=== PATIENT | male | born 1995 | race Asian ===

== ENCOUNTER 2019-02-10 19:52 | Inpatient (IN) ==
[2019-02-10 20:27] LABS: Basophils # (auto) 0.02 K/uL (0-0.2); Basophils % (auto) 0.3 %; Eosinophils % (auto) 1.6 %; Hematocrit (blood only) 47.5 % (42-52); Hemoglobin 16.7 g/dL (14.0-18.0); Immature Granulocytes # (auto) 0.01 K/uL (0.00-0.02); Immature Granulocytes % (auto) 0.2 %; Lymphocytes # (auto) 2.29 K/uL (1.2-3.4); Lymphocytes % (auto) 36.7 %; Mean Corpuscular Hgb Conc 35.2 g/dL (32-36); Mean Platelet Volume 9.5 fL (7.4-10.4); Monocytes # (auto) 0.52 K/uL (0.11-0.59); Monocytes % (auto) 8.3 %; Neutrophils % (auto) 52.9 %; Platelet Count 324 K/uL (130-400); RDW Standard Deviation 40.3 fL (36.4-46.3); Red Blood Count 5.22 M/uL (4.7-6.1); White Blood Count 6.24 K/uL (4.8-10.8)
[2019-02-10 20:29] LABS: Appearance Urine Clear (Clear); Bilirubin Urine Negative (Negative); Blood Urine Negative (Negative); Color Urine Yellow; Glucose Urine UA Negative (Negative); Ketones Urine Negative (Negative); Leukocyte Esterase Urine Negative (Negative); Nitrite Urine Negative (Negative); Protein Urine Negative (Negative); Specific Gravity Urine 1.026 (1.000-1.030); Urobilinogen Urine Negative (Negative); pH Urine 6.5 (4.5-7.5)
[2019-02-10] MEDS ORDERED: LACTATED RINGER'S 1,000 ML IV SCH (20:30)
[2019-02-10 20:53] LABS: Albumin Globulin Ratio 1.1 (0.9-2); Albumin Level 4.4 gm/dl (3.4-5.0); BUN Creatinine Ratio 12.9 (10-20); Bilirubin,Total 0.5 mg/dl (0.2-1); Creatinine Clr Calc Pharmacy 78.3 ml/min; Est GFR (African American) 117.6; Est GFR (Non-African American) 101.4; Globulin 4.2 gm/dl (2.5-4.0); Total Protein 8.6 gm/dl (6.4-8.2)
[2019-02-10] MEDS ORDERED: IOVERSOL 100ml IV PRN (22:23)
--- NOTE | 2019-02-10 22:29 | CT Scan Report ---
CT abd pelvis oral and IV con CT DOSE: 295.57 mGy.cm HISTORY: pancreatitis, pancreas protocol TECHNIQUE: Multiaxial CT images of the abdomen and pelvis were performed following the use of intrave nous and oral contrast. A dose lowering technique was utilized adhering to the principles of ALARA. COMPARISON STUDY: None. FINDINGS: The lung bases are clear. The liver, spleen, gallbladder, pancreas, kidneys, and adrenal gl ands are within normal limits. No bowel wall thickening or obstruction. The pelvic organs are unremar kable. No suspicious lytic or blastic osseous lesions. The appendix is normal. The suggestion of slight wall edema of components of the transverse and desce nding colon. No evidence for abscess collection or obstruction. IMPRESSION: 1. Normal appendix. 2. Possible mild colitis of the proximal to mid colon regions. 3. No evidence for abscess collection or obstruction. 4. Normal pancreas. The above report was generated using voice recognition software. It may contain grammatical, syntax or spelling errors. Electronically signed by: Alfred Recio M.D. 02/10/2019 10:28 PM
[2019-02-10] MEDS ORDERED: MoRPHine SULFATE 2 MG/ML CARP IV PRN (23:58)
[2019-02-10] MEDS ORDERED: ONDANSETRON INJ 2 MG/ML 2 ML VIAL IV PRN (23:58)
[2019-02-11] MEDS: LACTATED RINGER'S 1,000 ML IV SCH ×3 (00:35→11:17)
--- NOTE | 2019-02-11 02:22 | History & Physical Report ---
Date of Service February 10, 2019 Assessment & Plan (1) Acute pancreatitis: Patient with epigastric abdominal pain, elevated cplycv=[id number]. CT Abdomen with normal appearing pancreas. Other labs WNL. Mild acute pancreatitis most likely secondary to EtOH use -Admit to medical floor -NPO -Aggressive IVF with LR at 200mL/hr -Check Lipids in AM -Nausea control with Zofran PRN -Pain control with Morphine PRN Present on Admission?: Yes History of Present Illness Chief Complaint: Pancreatitis Primary Care Provider: [facility] Patient is a 23yo male with no significant past medical history presenting with pancreatitis. He reports appx 1 week of epigastric abdominal pain. Denies nausea, vomiting, fevers, chills, diarrhea or constipation. He drinks fairly regularly and reports drinking before his discomfort started. He also reports getting hit in the abdomen appx one week ago while playing basketball. Patient was seen at [facility] earlier today and was found to have an elevated Lipase > 3000. He was therefore sent to the ER. No additional complaints at this time ER Course: LR Allergies Allergy/AdvReac Type Severity Reaction Status Date / Time No Known Allergies Allergy Verified 02/10/19 20:40 Home Medications Home Medications Medication Instructions Recorded Confirmed Type No Known Home Medications 02/10/19 02/10/19 History Past Med/Surg History Medical History External hemorrhoids Family History Other Family history non-contributory Social History Preferred Language: German Communication Ability: Effective Health Information Manager Required: No Beliefs That Will Affect Care: None Current Living Situation: Other Current Living Situation Comment: Lives with roommates Other Information That Helps Us Care for You: No Feels Safe at Home: Yes Smoking Status: Current every day smoker Hx Alcohol Use: Yes Hx Substance Use: No Review of Systems All systems reviewed & are unremarkable except as noted in HPI & below Physical Exam Vital Signs (Past 24 Hours): Last Vital Signs Temp 36.3 C L 02/10/19 23:58 Pulse 57 L 02/10/19 23:58 Resp 18 02/10/19 23:58 BP 111/79 02/10/19 23:58 Pulse Ox 96 02/10/19 23:58 Physical Exam: General: patient resting comfortably, NAD, non-toxic in appearance, AA&O x 4 Skin: warm, dry, intact, no rashes or lesions HEENT: NC/AT, PERRL, EOMI, anicteric sclera, conjunctiva without injection, external ear normal to inspection and nontender, nares patent, moist mucus me mbranes, dentition intact, no oropharyngeal lesions, neck supple, trachea midline, no LAD, no thyromegaly, no JVD Heart: +S1/S2, regular, no m/r/g Lungs: equal air entry bilaterally, no rales/rhonchi/wheezes Abd: +BS, soft, ND, no masses/organomegaly/ascites, +Epigastric tenderness with palpation, no rebound/guarding or peritoneal signs Ext: warm, 2+ pulses in UE/LE bilaterally, no clubbing/cyanosis or edema Neuro: nonfocal, patient AA&O x 4, speech intact, no facial droop, moving all extremities on command with equal strength 5/5 Results & Data Laboratory Results Lab Results 02/10/19 02/10/19 02/10/19 Range/Units 20:04 20:04 20:04 WBC 6.24 (4.8-10.8) K/uL RBC 5.22 (4.7-6.1) M/uL Hgb 16.7 (14.0-18.0) g/dL Hct 47.5 (42-52) % MCV 91.0 (80-100) fL MCH 32.0 (25-34) pg MCHC 35.2 (32-36) g/dL RDW Std Deviation 40.3 (36.4-46.3) fL RDW Coeff of Ayan 12.0 (11.5-14.5) % Plt Count 324 (130-400) K/uL MPV 9.5 (7.4-10.4) fL Immature Gran % (Auto) 0.2 % Neut % (Auto) 52.9 % Lymph % (Auto) 36.7 % [place] % (Auto) 8.3 % Eos % (Auto) 1.6 % Baso % (Auto) 0.3 % Immature Gran # (Auto) 0.01 (0.00-0.02) K/uL Neut # (Auto) 3.30 (1.4-6.5) K/uL Lymph # (Auto) 2.29 (1.2-3.4) K/uL [place] # (Auto) 0.52 (0.11-0.59) K/uL Eos # (Auto) 0.10 (0-0.5) K/uL Baso # (Auto) 0.02 (0-0.2) K/uL Sodium 139 (136-145) mmol/L Potassium (3.5-5.1) mmol/L Chloride 106 (98-107) mmol/L Carbon Dioxide 29 (21-32) mmol/L Anion Gap 4.0 (3-11) BUN 13 (7-18) mg/dl Creatinine 1.04 (0.6-1.4) mg/dl Est Cr Clr Drug Dosing 78.3 ml/min Est GFR ( Amer) 117.6 Est GFR (Non-Af Amer) 101.4 BUN/Creatinine Ratio 12.9 (10-20) Glucose 75 (70-99) mg/dl Calcium 10.0 (8.5-10.1) mg/dl Total Bilirubin 0.5 (0.2-1) mg/dl AST (15-37) U/L ALT 25 (12-78) U/L Alkaline Phosphatase 96 (45-117) U/L Total Protein 8.6 H (6.4-8.2) gm/dl Albumin 4.4 (3.4-5.0) gm/dl Globulin 4.2 H (2.5-4.0) gm/dl Albumin/Globulin Ratio 1.1 (0.9-2) Lipase 4055 H (73-393) U/L Urine Color Urine Appearance (Clear) Urine pH (4.5-7.5) POC Urine pH 6 (4.5-7.5) Ur Specific [place] (1.000-1.030) Urine Protein (Negative) POC Urine Protein Trace H (Negative) Urine Glucose (UA) (Negative) POC Ur Glucose (UA) Normal (Normal) Urine Ketones (Negative) POC Urine Ketones Negative (Negative) Urine Blood (Negative) POC Urine Blood Negative (Negative) Urine Nitrite (Negative) POC Urine Nitrite Negative (Negative) Urine Bilirubin (Negative) POC Urine Bilirubin Negative (Negative) Urine Urobilinogen (Negative) POC Urine Urobilinogen Normal (Normal) Ur Leukocyte Esterase (Negative) POC U Leukocyte Esteras Negative (Negative) 02/10/19 02/10/19 Range/Units 20:04 21:19 WBC (4.8-10.8) K/uL RBC (4.7-6.1) M/uL Hgb (14.0-18.0) g/dL Hct (42-52) % MCV (80-100) fL MCH (25-34) pg MCHC (32-36) g/dL RDW Std Deviation (36.4-46.3) fL RDW Coeff of Ayan (11.5-14.5) % Plt Count (130-400) K/uL MPV (7.4-10.4) fL Immature Gran % (Auto) % Neut % (Auto) % Lymph % (Auto) % [place] % (Auto) % Eos % (Auto) % Baso % (Auto) % Immature Gran # (Auto) (0.00-0.02) K/uL Neut # (Auto) (1.4-6.5) K/uL Lymph # (Auto) (1.2-3.4) K/uL [place] # (Auto) (0.11-0.59) K/uL Eos # (Auto) (0-0.5) K/uL Baso # (Auto) (0-0.2) K/uL Sodium (136-145) mmol/L Potassium 4.0 (3.5-5.1) mmol/L Chloride (98-107) mmol/L Carbon Dioxide (21-32) mmol/L Anion Gap (3-11) BUN (7-18) mg/dl Creatinine (0.6-1.4) mg/dl Est Cr Clr Drug Dosing ml/min Est GFR ( Amer) Est GFR (Non-Af Amer) BUN/Creatinine Ratio (10-20) Glucose (70-99) mg/dl Calcium (8.5-10.1) mg/dl Total Bilirubin (0.2-1) mg/dl AST 19 (15-37) U/L ALT (12-78) U/L Alkaline Phosphatase (45-117) U/L Total Protein (6.4-8.2) gm/dl Albumin (3.4-5.0) gm/dl Globulin (2.5-4.0) gm/dl Albumin/Globulin Ratio (0.9-2) Lipase (73-393) U/L Urine Color Yellow Urine Appearance Clear (Clear) Urine pH 6.5 (4.5-7.5) POC Urine pH (4.5-7.5) Ur Specific [place] 1.026 (1.000-1.030) Urine Protein Negative (Negative) POC Urine Protein (Negative) Urine Glucose (UA) Negative (Negative) POC Ur Glucose (UA) (Normal) Urine Ketones Negative (Negative) POC Urine Ketones (Negative) Urine Blood Negative (Negative) POC Urine Blood (Negative) Urine Nitrite Negative (Negative) POC Urine Nitrite (Negative) Urine Bilirubin Negative (Negative) POC Urine Bilirubin (Negative) Urine Urobilinogen Negative (Negative) POC Urine Urobilinogen (Normal) Ur Leukocyte Esterase Negative (Negative) POC U Leukocyte Esteras (Negative) Diagnostic Findings CT abd pelvis oral and IV con CT DOSE: 295.57 mGy.cm HISTORY: pancreatitis, pancreas protocol TECHNIQUE: Multiaxial CT images of the abdomen and pelvis were performed following the use of intravenous and oral contrast. A dose lowering technique was utilized adhering to the principles of ALARA. COMPARISON STUDY: None. FINDINGS: The lung bases are clear. The liver, spleen, gallbladder, pancreas, kidneys, and adrenal glands are within normal limits. No bowel wall thickening or obstruction. The pelvic organs are unremarkable. No suspicious lytic or blastic osseous lesions. The appendix is normal. The suggestion of slight wall edema of components of the transverse and descending colon. No evidence for abscess collection or obstruction. IMPRESSION: 1. Normal appendix. 2. Possible mild colitis of the proximal to mid colon regions. 3. No evidence for abscess collection or obstruction. 4. Normal pancreas. The above report was generated using voice recognition software. It may contain grammatical, syntax or spelling errors. Electronically signed by: Alfred Recio M.D. 02/10/2019 10:28 PM Dictated: 02/10/192224 Transcribed: 02/10/192224 Code Status & VTE Plan Code Status FULL Critical Care Time Critical Care Time: No (1) Acute pancreatitis Acute pancreatitis complication: unspecified Pancreatitis type: unspecified pancreatitis type Qualified Code(s): K85.90 - Acute pancreatitis without necrosis or infection, unspecified
--- NOTE | 2019-02-11 03:03 | Emergency Department Note ---
Entered by Zara Obregon acting as a scribe for Elvis Brown MD ED Provider Note CHIEF COMPLAINT: Abdominal pain HISTORY OF PRESENT ILLNESS: The patient is a 23 year old male presenting to the Emergency Department complaining of persistent abdominal pain starting 1 week ago. The patient reports that he has been experiencing abdominal pain. He describes this pain as a tight feeling. He states that his abdominal pain is non-radiating. He notes that he has lost his appetite but did eat ice cream prior to arrival. He explains that he went to [facility] prior to arrival and had blood work done. He states that he received an email from Dr. Ralph � [facility] physician who told the patient that his lipase was elevated at 3615 and he needed to go to the Emergency Department. The patient reports that he drank a large amount of alcohol 1 week ago at his friend�s birthday constitution party. He states that he experienced this same abdominal pain 8 days ago after playing basketball. He notes that he regularly smokes tobacco. He explains that he has intermittent problems with his hemorrhoids and that he had a knee surgery. He adds that he doesn�t regularly take medications. Pt denies LOC, headache, fevers, chills, diaphoresis, visual changes, neck pain, chest pain, breathing difficulties, nausea, vomiting, back pain, melena, hematochezia, urinary symptoms, numbness, weakness, lymphadenopathy, rash, or other complaints. REVIEW OF SYSTEMS: See HPI for pertinent positives and negatives. A total of ten systems were reviewed and were otherwise negative. PMHx/PSHx: Hemorrhoids. History of knee surgery. SOCIAL HISTORY: Patient lives at home. Current everyday smoker. PHYSICAL EXAM: GENERAL: Awake, alert, well-appearing, in no distress HENT: Normocephalic, atraumatic. Oropharynx unremarkable. EYES: Normal conjunctiva. Sclera non-icteric. NECK: Inspection normal. Non-tender. Supple. No nuchal rigidity. FROM. No masses. RESPIRATORY: Clear to auscultation. No wheezes. No rales. Normal respiratory ef fort. CARDIAC: Normal rate. Normal rhythm. No murmurs. No rubs. Extremities warm and well perfused. Pulses equal. No JVD. GI: Soft, non-distended. Mild epigastric pain. No rebound or guarding. No m asses. RECTAL: Deferred. MUSCULOSKELETAL: Atraumatic. Chest examination reveals no tenderness. The back is symmetrical on inspection without obvious abnormality. There is no CVA tenderness to palpation. No joint edema. LOWER EXTREMITIES: Calves are equal size bilaterally and non-tender. No edema. No discoloration. NEURO: Normal sensorium. No sensory or motor deficits noted. SKIN: No rash or jaundice noted. EMERGENCY DEPARTMENT COURSE: 2007: The patient was evaluated in room B5, and a complete history and physical examination were performed. 2218: I updated the patient at this time. 2233: I reviewed the patient's case with Dr. Cristhian FOFANA Hospitalist. She will evaluate the patient for further management. MEDICAL DECISION MAKING: Triage Nursing notes reviewed and agree them. The patient's history was concerning for abdominal pain and an elevated outpatient lipase. Differential diagnosis: Etiologies such as pancreatitis, appendicitis, diverticulitis, PUD, biliary pathology, UTI,, obstruction, mesenteric ischemia, aortic pathology, infections, inflammatory bowel disease, renal colic, as well as others were entertained. Physical examination findings: As above. ER treatment provided: Patient declined analgesia Lactated Ringer hydration. On reassessment the patient felt better. Diagnostics interpreted by me: The labs revealed an unremarkable CBC and chemistry panel. The patient has a market elevation of his lipase at 4055. Urinalysis unremarkable. Imaging studies: CT scan of the abdomen pelvis was performed. This is negative for any acute pathology regarding the pancreas. Radiology questioned some mild colitis however the patient has no symptoms to suggest that. Consultation: A consultation was placed with the [facility] hospitalist. The case was discussed and diagnostics were reviewed. The patient was evaluated in the ER for further treatment. IMPRESSION: Acute pancreatitis PLAN: Being Evaluated by Hospitalist The rockyibe's documentation has been prepared under my direction and personally reviewed by me in its entirety. I confirm that the note above accurately reflects all work, treatment, procedures, and medical decision making performed by me. Impression & Plan Acute pancreatitis Past Med/Surg History Medical History External hemorrhoids Social History Preferred Language: Polish Communication Ability: Effective Computer Systems Security Administrator Required: No Beliefs That Will Affect Care: None Current Living Situation: Other Current Living Situation Comment: Lives with roommates Other Information That Helps Us Care for You: No Feels Safe at Home: Yes Smoking Status: Current every day smoker Hx Alcohol Use: Yes Hx Substance Use: No Results & Data Vital Signs Vital Signs - 24 hr 02/10/19 19:58 02/10/19 20:26 02/10/19 20:31 Temperature 36.6 C Temperature Source Oral Sepsis Recent Fever Within 48 Hours No Sepsis Action Taken by Nursing No Action Required Pulse Rate 70 Pulse Rate [Finger] 63 Respiratory Rate 18 18 Respiratory Effort / Characteristics Non-Labored Respiratory Depth Normal Blood Pressure 105/74 Blood Pressure [Left Arm] 110/77 Blood Pressure Mean 84 Blood Pressure Mean [Left Arm] 88 Pulse Oximetry 97 98 97 Oxygen Delivery Method Room Air Room Air Room Air 02/10/19 22:03 02/10/19 23:58 Temperature 36.3 C L Temperature Source Oral Sepsis Recent Fever Within 48 Hours Sepsis Action Taken by Nursing Pulse Rate Pulse Rate [Finger] 55 L 57 L Respiratory Rate 18 18 Respiratory Effort / Characteristics Non-Labored Spontaneous Respiratory Depth Normal Blood Pressure Blood Pressure [Left Arm] 111/84 111/79 Blood Pressure Mean Blood Pressure Mean [Left Arm] 93 89 Pulse Oximetry 100 96 Oxygen Delivery Method Room Air Room Air Home Medications Current Medication List: was personally reviewed by me Laboratory Data Attestation: I reviewed the patient's lab results. Result diagrams: 02/10/19 20:04 02/10/19 21:19 Lab Results 02/10/19 02/10/19 02/10/19 Range/Units 20:04 20:04 20:04 WBC 6.24 (4.8-10.8) K/uL RBC 5.22 (4.7-6.1) M/uL Hgb 16.7 (14.0-18.0) g/dL Hct 47.5 (42-52) % MCV 91.0 (80-100) fL MCH 32.0 (25-34) pg MCHC 35.2 (32-36) g/dL RDW Std Deviation 40.3 (36.4-46.3) fL RDW Coeff of Ayan 12.0 (11.5-14.5) % Plt Count 324 (130-400) K/uL MPV 9.5 (7.4-10.4) fL Immature Gran % (Auto) 0.2 % Neut % (Auto) 52.9 % Lymph % (Auto) 36.7 % [place] % (Auto) 8.3 % Eos % (Auto) 1.6 % Baso % (Auto) 0.3 % Immature Gran # (Auto) 0.01 (0.00-0.02) K/uL Neut # (Auto) 3.30 (1.4-6.5) K/uL Lymph # (Auto) 2.29 (1.2-3.4) K/uL [place] # (Auto) 0.52 (0.11-0.59) K/uL Eos # (Auto) 0.10 (0-0.5) K/uL Baso # (Auto) 0.02 (0-0.2) K/uL Sodium 139 (136-145) mmol/L Potassium (3.5-5.1) mmol/L Chloride 106 (98-107) mmol/L Carbon Dioxide 29 (21-32) mmol/L Anion Gap 4.0 (3-11) BUN 13 (7-18) mg/dl Creatinine 1.04 (0.6-1.4) mg/dl Est Cr Clr Drug Dosing 78.3 ml/min Est GFR ( Amer) 117.6 Est GFR (Non-Af Amer) 101.4 BUN/Creatinine Ratio 12.9 (10-20) Glucose 75 (70-99) mg/dl Calcium 10.0 (8.5-10.1) mg/dl Total Bilirubin 0.5 (0.2-1) mg/dl AST (15-37) U/L ALT 25 (12-78) U/L Alkaline Phosphatase 96 (45-117) U/L Total Protein 8.6 H (6.4-8.2) gm/dl Albumin 4.4 (3.4-5.0) gm/dl Globulin 4.2 H (2.5-4.0) gm/dl Albumin/Globulin Ratio 1.1 (0.9-2) Lipase 4055 H (73-393) U/L Urine Color Urine Appearance (Clear) Urine pH (4.5-7.5) POC Urine pH 6 (4.5-7.5) Ur Specific [place] (1.000-1.030) Urine Protein (Negative) POC Urine Protein Trace H (Negative) Urine Glucose (UA) (Negative) POC Ur Glucose (UA) Normal (Normal) Urine Ketones (Negative) POC Urine Ketones Negative (Negative) Urine Blood (Negative) POC Urine Blood Negative (Negative) Urine Nitrite (Negative) POC Urine Nitrite Negative (Negative) Urine Bilirubin (Negative) POC Urine Bilirubin Negative (Negative) Urine Urobilinogen (Negative) POC Urine Urobilinogen Normal (Normal) Ur Leukocyte Esterase (Negative) POC U Leukocyte Esteras Negative (Negative) 02/10/19 02/10/19 Range/Units 20:04 21:19 WBC (4.8-10.8) K/uL RBC (4.7-6.1) M/uL Hgb (14.0-18.0) g/dL Hct (42-52) % MCV (80-100) fL MCH (25-34) pg MCHC (32-36) g/dL RDW Std Deviation (36.4-46.3) fL RDW Coeff of Ayan (11.5-14.5) % Plt Count (130-400) K/uL MPV (7.4-10.4) fL Immature Gran % (Auto) % Neut % (Auto) % Lymph % (Auto) % [place] % (Auto) % Eos % (Auto) % Baso % (Auto) % Immature Gran # (Auto) (0.00-0.02) K/uL Neut # (Auto) (1.4-6.5) K/uL Lymph # (Auto) (1.2-3.4) K/uL [place] # (Auto) (0.11-0.59) K/uL Eos # (Auto) (0-0.5) K/uL Baso # (Auto) (0-0.2) K/uL Sodium (136-145) mmol/L Potassium 4.0 (3.5-5.1) mmol/L Chloride (98-107) mmol/L Carbon Dioxide (21-32) mmol/L Anion Gap (3-11) BUN (7-18) mg/dl Creatinine (0.6-1.4) mg/dl Est Cr Clr Drug Dosing ml/min Est GFR ( Amer) Est GFR (Non-Af Amer) BUN/Creatinine Ratio (10-20) Glucose (70-99) mg/dl Calcium (8.5-10.1) mg/dl Total Bilirubin (0.2-1) mg/dl AST 19 (15-37) U/L ALT (12-78) U/L Alkaline Phosphatase (45-117) U/L Total Protein (6.4-8.2) gm/dl Albumin (3.4-5.0) gm/dl Globulin (2.5-4.0) gm/dl Albumin/Globulin Ratio (0.9-2) Lipase (73-393) U/L Urine Color Yellow Urine Appearance Clear (Clear) Urine pH 6.5 (4.5-7.5) POC Urine pH (4.5-7.5) Ur Specific [place] 1.026 (1.000-1.030) Urine Protein Negative (Negative) POC Urine Protein (Negative) Urine Glucose (UA) Negative (Negative) POC Ur Glucose (UA) (Normal) Urine Ketones Negative (Negative) POC Urine Ketones (Negative) Urine Blood Negative (Negative) POC Urine Blood (Negative) Urine Nitrite Negative (Negative) POC Urine Nitrite (Negative) Urine Bilirubin Negative (Negative) POC Urine Bilirubin (Negative) Urine Urobilinogen Negative (Negative) POC Urine Urobilinogen (Normal) Ur Leukocyte Esterase Negative (Negative) POC U Leukocyte Esteras (Negative) Administered Medications Lactated Ringer's (Lr) 1,000 mls @ 200 mls/hr IV .Q5H SHARI Stop: 02/11/19 14:57 Last Admin: 02/11/19 00:35 Dose: 200 mls/hr Documented by: [id number] Discontinued Medications Lactated Ringer's (Lr) 1,000 mls @ 200 mls/hr IV .Q5H SHARI Stop: 03/12/19 20:29 Last Admin: 02/10/19 20:28 Dose: 200 mls/hr Documented by: [id number] Ioversol (Optiray 320 100ml) 93 ml IV ONCE PRN PRN Reason: Interaction Checking Stop: 02/14/19 22:22 Last Admin: 02/10/19 22:23 Dose: 1 ml Documented by: [id number] Imaging Data Radiologist's Impression: Radiology results as stated below per my review and the radiologist's interpretation: CT abd pelvis oral and IV con CT DOSE: 295.57 mGy.cm HISTORY: pancreatitis, pancreas protocol TECHNIQUE: Multiaxial CT images of the abdomen and pelvis were performed following the use of intravenous and oral contrast. A dose lowering technique was utilized adhering to the principles of ALARA. COMPARISON STUDY: None. FINDINGS: The lung bases are clear. The liver, spleen, gallbladder, pancreas, kidneys, and adrenal glands are within normal limits. No bowel wall thickening or obstruction. The pelvic organs are unremarkable. No suspicious lytic or blastic osseous lesions. The appendix is normal. The suggestion of slight wall edema of components of the transverse and descending colon. No evidence for abscess collection or obstruction. IMPRESSION: 1. Normal appendix. 2. Possible mild colitis of the proximal to mid colon regions. 3. No evidence for abscess collection or obstruction. 4. Normal pancreas. The above report was generated using voice recognition software. It may contain grammatical, syntax or spelling errors. Electronically signed by: Alfred Recio M.D. 02/10/2019 10:28 PM Blood Pressure Blood Pressure Findings: Normal blood pressure Blood Pressure Disposition: further management by hospitalist Discharge Plan Visit Data *Final* Discharge Date/Time: 02/10/19 23:42 Chief Complaint: Abdominal Pain Stated Complaint: LIPASE LEVEL HIGH ED Provider: Elvis Brown Discharge Problem: Acute pancreatitis Patient Disposition: Admitted As Inpatient Discharge Instructions Interventions: ED Discharge Assessment Last Done: 02/10/19 23:42 Discharge Problem: Acute pancreatitis Qualifiers: Pancreatitis type: unspecified pancreatitis type Acute pancreatitis complication: unspecified Qualified Code(s): K85.90 - Acute pancreatitis without necrosis or infection, unspecified The scribe's documentation has been prepared under my direction and personally reviewed by me in its entirety. I confirm that the note above accurately reflects all work, treatment, procedures, and medical decision making performed by me.
[2019-02-11 06:25] LABS: Hematocrit (blood only) 39.3 % (42-52); Hemoglobin 13.4 g/dL (14.0-18.0); Mean Corpuscular Hgb Conc 34.1 g/dL (32-36); Mean Corpuscular Volume 90.1 fL (80-100); Mean Platelet Volume 9.4 fL (7.4-10.4); Platelet Count 260 K/uL (130-400); RDW Coefficient of Variation 11.9 % (11.5-14.5); RDW Standard Deviation 39.4 fL (36.4-46.3); Red Blood Count 4.36 M/uL (4.7-6.1)
[2019-02-11 06:43] LABS: BUN Creatinine Ratio 12.4 (10-20); Calcium 8.8 mg/dl (8.5-10.1); Creatinine Clr Calc Pharmacy 130.7 ml/min; Est GFR (African American) 146.2; Est GFR (Non-African American) 126.2; Potassium 4.1 mmol/L (3.5-5.1)
[2019-02-11 06:50] LABS: Basophils # (auto) 0.02 K/uL (0-0.2); Basophils % (auto) 0.4 %; Eosinophils # (auto) 0.12 K/uL (0-0.5); Eosinophils % (auto) 2.3 %; Immature Granulocytes # (auto) 0.01 K/uL (0.00-0.02); Immature Granulocytes % (auto) 0.2 %; Lymphocytes # (auto) 2.75 K/uL (1.2-3.4); Lymphocytes % (auto) 51.9 %; Monocytes # (auto) 0.36 K/uL (0.11-0.59); Monocytes % (auto) 6.8 %; Neutrophils # (auto) 2.04 K/uL (1.4-6.5); Neutrophils % (auto) 38.4 %; RBC Morphology Unremarkable
--- NOTE | 2019-02-11 13:30 | Hospitalist Progress Note ---
Date of Service February 11, 2019 Assessment & Plan (1) Acute pancreatitis: Patient with epigastric abdominal pain, elevated [id number]. CT Abdomen with normal appearing pancreas. Other labs WNL. Mild acute pancreatitis most likely secondary to EtOH use -Admit to medical floor -NPO initially. Patient currently is asymptomatic, will start clear liquid diet. If tolerates this. May consider full liquid for breakfast on Wednesday. Anticipate discharge Wednesday. Will discontinue IVF. -Nausea control with Zofran PRN -Pain control with Morphine PRN Spent 35 minutes in management of patient. Subjective 23 yo male reports having no pain at this time. He reports being hungry. Patient denies any nausea, vomiting. Constitutional: no fever Eyes: no blind spots Ear, Nose, Mouth, Throat: no ear pain Respiratory: no dyspnea Cardiovascular: no chest pain Gastrointestinal: no abdominal pain Musculoskeletal: no back pain Integumentary: no acne Neurologic: no gait abnormality Psychiatric: no behavioral changes Endocrine: no fatigue Hematologic / Lymphatic: no easy bleeding Physical Exam Vital Signs (Past 24 Hours): Last Vital Signs Temp 36.5 C 02/11/19 08:05 Pulse 63 02/11/19 08:05 Resp 18 02/11/19 08:05 BP 100/64 02/11/19 08:05 Pulse Ox 96 02/11/19 08:05 Physical Exam: General: patient resting comfortably, NAD, non-toxic in appearance, AA&O x 4 Skin: warm, dry, intact, no rashes or lesions HEENT: NC/AT, PERRL, EOMI, anicteric sclera, conjunctiva without injection, external ear normal to inspection and nontender, nares patent, moist mucus membranes, dentition intact, no oropharyngeal lesions, neck supple, trachea midline, no LAD, no thyromegaly, no JVD Heart: +S1/S2, regular, no m/r/g Lungs: equal air entry bilaterally, no rales/rhonchi/wheezes Abd: +BS, soft, ND, no masses/organomegaly/ascites, no longer having epigastric tenderness, no rebound/guarding or peritoneal signs Ext: warm, 2+ pulses in UE/LE bilaterally, no clubbing/cyanosis or edema Neuro: nonfocal, patient AA&O x 4, speech intact, no facial droop, moving all extremities on command with equal strength 5/5 (1) Acute pancreatitis Acute pancreatitis complication: unspecified Pancreatitis type: unspecified pancreatitis type Qualified Code(s): K85.90 - Acute pancreatitis without ne crosis or infection, unspecified
--- NOTE | 2019-02-12 15:21 | Discharge Summary ---
Date of Service February 12, 2019 Admission HPI Per Admitting Provider Patient is a 23yo male with no significant past medical history presenting with pancreatitis. He reports appx 1 week of epigastric abdominal pain. Denies nausea, vomiting, fevers, chills, diarrhea or constipation. He drinks fairly regularly and reports drinking before his discomfort started. He also reports getting hit in the abdomen appx one week ago while playing basketball. Patient was seen at [facility] earlier today and was found to have an elevated Lipase > 3000. He was therefore sent to the ER. No additional complaints at this time ER Course: LR Admission Exam Per Admitting Provider General: patient resting comfortably, NAD, non-toxic in appearance, AA&O x 4 Skin: warm, dry, intact, no rashes or lesions HEENT: NC/AT, PERRL, EOMI, anicteric sclera, conjunctiva without injection, external ear normal to inspection and nontender, nares patent, moist mucus membranes, dentition intact, no oropharyngeal lesions, neck supple, trachea midline, no LAD, no thyromegaly, no JVD Heart: +S1/S2, regular, no m/r/g Lungs: equal air entry bilaterally, no rales/rhonchi/wheezes Abd: +BS, soft, ND, no masses/organomegaly/ascites, +Epigastric tenderness with palpation, no rebound/guarding or peritoneal signs Ext: warm, 2+ pulses in UE/LE bilaterally, no clubbing/cyanosis or edema Neuro: nonfocal, patient AA&O x 4, speech intact, no facial droop, moving all extremities on command with equal strength 5/5 Principal Diagnosis Acute alcohol pancreatitis Discharge Exam Constitutional WD/WN, vitals as above Eyes PERRL, conjunctivae normal, anicteric sclerae ENMT external ear and nose normal, oropharynx normal Neck trachea midline, no thyromegaly Respiratory normal respiratory effort, lungs clear to auscultation Cardiovascular RRR, no murmur, no edema Gastrointestinal (Abdomen) Inspection/Auscultation: abdomen normal to inspection and normal bowel sounds; abdomen not distended Percussion/Palpation: + abdomen tender (minimal tenderness in epigastric region) and abdomen soft; no guarding, abdomen not rigid and no ascites Musculoskeletal no cyanosis or clubbing, extremities motor strength 5/5 Skin no rashes, warm and dry Neurologic patellar DTR's 2+ bilat, sensation intact and PERRL, EOMI, accommodation nl, no face palsy, no dysarthria Psychiatric A+Ox3, euthymic affect Lymphatic no cervical or axillary lymphadenopathy Discharge Data Allergies Allergy/AdvReac Type Severity Reaction Status Date / Time No Known Allergies Allergy Verified 02/10/19 20:40 Ordered Studies 02/10/19 20:16 CT abd pelvis oral and IV con Stat Hospital Course (1) Acute pancreatitis: Patient with epigastric abdominal pain, elevated [id number]. CT Abdomen with normal appearing pancreas. Other labs WNL. Mild acute pancreatitis most likely secondary to EtOH use patient admitted to binge alcohol episode for recent birthday democrat he attended admits to a lot of heavy drinking in the past, specifically last year treated with NPO status initially, advanced to full liquids and then low residue diet, tolerated well aggressive IV hydration lipase down to 1500 from 4000 but minimal pain and tolerating diet discharge to home, specifically told to get rest, stay well hydrated, continue to advance diet slowly instructed to not drink for at least 4 weeks in the future he could be prone to repeat episodes, warned him to not binge drink again of note, normal triglycerides, no evidence of gall stones and LFT all normal Total Time Total Time Spent Total Time Spent (In Minutes): 35 minutes Total Time Includes: Examination of the Patient, Discharge Planning and Medication Reconciliation Discharge Plan Discharge Items Patient Disposition: Home - Self-Care Reason For Visit: PANCREATITIS Discharge Diagnosis: Acute pancreatitis Condition: Good Discharge Goals: Decrease discomfort and Improve function Activity: Resume your previous activity Driving/Machine Use: No limitations Non-emergency contact: Primary Care Provider Call non-emergency contact if: you have any medication questions, your symptoms worsen, your pain is worsening and you have a fever Follow-up/Referrals: [facility]ell,[facility] [Primary Care Provider] - Diet: Regular Addtl Provider Instructions: Acute pancreatitis most likely cause is acute alcohol binge recommend that you do not drink for 4 weeks please note that in the future, heavy drinking could lead to pancreatitis get rest and stay well hydrated, drink plenty of water, be sure to drink fluids with electrolytes Prescriptions: No Action No Known Home Medications RF: 0 Stand-Alone Forms: My [facility] Discharge Orders: Discharge Order (Routine); Ordered 02/12/19 Ordered By: Wagner Viramontes Admission Data Admit Date/Time: 02/10/19 23:28 Attending Provider: Wagner Viramontes Admit Provider: Ronit Morrow Primary Care Provider: Kimmell,[facility] Service: Medical Other Interventions: Discharge Summary Assessment (RN) Last Done: 02/12/19 15:06
--- NOTE | 2019-02-15 06:51 | Coding Query ---
BMI To promote full compliance with coding requirements relating to patient care, physician participation is requested in all cases of dobby loom fixer uncertainty. Please assist us with the question(s) below: Please place an X within the parenthesis (x). If other, please document: BMI 19.3 was documented in this record for this patient. If the BMI is significant, please check the box that provides a more specific associated diagnosis: ( ) Overweight/Obese ( ) Obesity ( ) Morbid obesity ( ) Obesity Hypoventilation Syndrome (OHS) (x ) Heathy weight, not significant ( ) Underweight/Thin ( ) Other, please specify Thank you Gina ALARCON
== END 2019-02-12 15:42 | disposition home or self-care (01) | DRG 440 ==
LOC: ED 19:52 → 4W 23:28 → SUATTDRO 23:28 → 4W 23:42